=== PATIENT | female | born 1975 | race Caucasian/White ===

== ENCOUNTER 2016-08-08 23:35 | Emergency (ER) | payer OTHER ==
[~2016-08-08] VITALS: Ht 165.1 cm; Wt 74.8 kg
[2016-08-08 23:44] VITALS: BP 139/58
--- NOTE | 2016-08-09 00:13 | ED HEAD/FACIAL INJ COMPLAINT ---
History of Present Illness General Chief Complaint: Laceration Procedure Stated Complaint: "FOREHEAD LAC S/P FALL, -LOC" Source: patient, family Exam Limitations: no limitations Vital Signs & Intake/Output Vital Signs & Intake/Output Vital Signs Date Time Temp Pulse Resp B/P Pulse O2 O2 Flow FiO2 Ox Delivery Rate 08/08 2349 95 Room Air 08/08 2344 97.8 94 18 139/58 95 Room Air ED Intake and Output 08/09 0000 08/08 1200 Intake Total Output Total Balance Patient 165 lb Weight Allergies Coded Allergies: No Known Allergies (08/08/16) Reconcile Medications No Known Home Medications Triage Note: TRIAGE: PATIENT TO ER FROM HOME S/P TRIP AND FALL APPROX 45 MINUTES AGO, DENIES SYNCOPE/DIZZINESS PRIOR TO FALL. PATIENT NOTED W/ LAC TO R SIDE FOREHEAD, SLIGHT ACTIVE BLEEDING NOTED. PATIENT REPORTS LAST TETNAUS APPROX 5 YEARS AGO. -LOC, +HIT HEAD, -BLOODTHINNERS. Triage Nurses Notes Reviewed? yes Onset: Abrupt Severity: mild Location: frontal Method of Injury: fall Loss of Consciousness: no loss of consciousness : No Patient currently breastfeeds: No HPI: 40-year-old female comes into emergency room for further evaluation of fall. Patient reports that she tripped when she was going into the living room and hit her head on the corner of the table. She denies any loss of conscious. Denies any vomiting or headache or neck pain or chest pain or injury anywhere else on her body. She denies any headache currently. Patient has a laceration to the right side of her forehead which is why she came in. Patient admits to having a glass of wine but she is clinically sober here in the emergency room does not appear to be actively intoxicated. (KATHARINA MCGUIRE) Past History Travel History Traveled to [place] past 21 day No Medical History Any Pertinent Medical History? see below for history Neurological: NONE EENT: NONE Cardiovascular: NONE Respiratory: NONE Gastrointestinal: NONE Hepatic: NONE Renal: NONE Musculoskeletal: NONE Psychiatric: NONE Endocrine: NONE Blood Disorders: NONE Cancer(s): NONE DOVETAILER/Reproductive: NONE Surgical History Surgical History: non-contributory Psychosocial History What is your primary language Swedish Tobacco Use: Refused to answer Family History Hx Contributory? No (KATHARINA MCGUIRE) Review of Systems Review of Systems Constitutional: Reports: no symptoms. EENTM: Reports: no symptoms. Respiratory: Reports: no symptoms. Cardiovascular: Reports: no symptoms. GI: Reports: no symptoms. Genitourinary: Reports: no symptoms. Musculoskeletal: Reports: no symptoms. Skin: Reports: see HPI. Neurological/Psychological: Reports: see HPI. Hematologic/Endocrine: Reports: no symptoms. Immunologic/Allergic: Reports: no symptoms. All Other Systems: Reviewed and Negative (KATHARINA MCGUIRE) Physical Exam Physical Exam General Appearance: well developed/nourished, mild distress Head: 2 cm laceration right side forehead Eyes: Bilateral: normal appearance, PERRL, EOMI. Ears, Nose, Throat: normal pharynx, normal ENT inspection, hearing grossly normal Neck: normal inspection, supple, full range of motion, no midline tenderness Respiratory: normal breath sounds, no respiratory distress Cardiovascular: regular rate/rhythm Back: normal inspection Extremities: normal inspection, normal range of motion, no edema Psychiatric: awake, alert, oriented x 3 Cranial Nerves: normal hearing, normal speech, PERRL Coordination/Gait: normal gait Motor/Sensory: no motor/sensory deficits Skin: intact, normal color, warm/dry Lymphatic: no anterior cervical allyson (KATHARINA MCGUIRE) Progress Differential Diagnosis: corneal abrasion, c-spine injury, facial fracture, globe injury, ICH, orbit fracture, skull fracture Plan of Care: see below (KATHARINA MCGUIRE) Departure Departure Disposition: HOME OR SELF CARE Condition: Stable Clinical Impression Primary Impression: Facial laceration Secondary Impressions: Head injury Referrals: UNKNOWN (PCP/Family) Additional Instructions: Return in 7 days for suture removal. Return immediately if any vomiting, severe headache, neck pain, or any other concerns worsening symptoms. Patient should be observed overnight by family member. Please go over all results of today's visit with your primary care doctor. Contact your primary care doctor to let them know you were here in the emergency room. There may be nonspecific findings which may not be related to your visit today here in the emergency room but may require further evaluation and chronic monitoring by your primary care doctor. If you had a laceration today the chance of foreign body always remains. You should follow-up with your primary care doctor for recheck in 3-5 days for a wound check. If you had an x-ray done there is a chance that a fracture could have been missed on initial read and you should follow-up with your primary care doctor for repeat x-rays if symptoms persist. If your blood pressure was elevated here in the emergency room please have rechecked by her primary care doctor within the next 48 hours by your primary care doctor. If you were prescribed a narcotic here in the emergency room or any type of controlled substances you're not allowed to drive while taking this medication or operate any type of heavy machinery. Narcotics can make you feel lightheaded dizziness nausea and can cause constipation. You may need to crop picker a stool softener. Thank you for choosing [facility] emergency room. Please return to the emergency room immediately if you have any other concerns worsening of symptoms. Departure Forms: Customer Survey General Discharge Information Prescriptions: Current Visit Scripts No Known Home Medications Comments 08/09/2016 12:30:53 AM Patient does not appear to be intoxicated. She has a family member that's going to be with her all night. She has no symptoms of concussion. No loss of consciousness. No vomiting. Tetanus shot is up-to-date. Patient tolerated procedure well. Return if any other concerns. At this time I do not feel CT scan is necessary. I offered CT scan to patient and family members but they declined. Patient will be observed overnight and follow-up as needed. Patient was instructed to return if she has any complaints of headache vomiting neck pain or any other concerns. (KATHARINA MCGUIRE) PA/RETURN CHECKER Co-Sign Statement Statement: ED Attending supervision documentation- [] I saw and evaluated the patient. I have also reviewed all the pertinent lab results and diagnostic results. I agree with the findings and the plan of care as documented in the PA's/RETURN CHECKER's documentation. x] I have reviewed the ED Record and agree with the PA's/RETURN CHECKER's documentation. [] Additions or exceptions (if any) to the PAs/RETURN CHECKER's note and plan are summarized below: [] (BARBARA THOMAS,VÍCTOR Olson) Procedures Laceration/Wound Repair Progress: Betadine prep, 1% lidocaine with epi, 4 mL injected, irrigated with peroxide, 5.0 chromic gut subcutaneous stitch placed, 3 6. 0 nylon sutures placed superficially, sterile technique, bacitracin placed, patient tolerated procedure well, (KATHARINA MCGUIRE)
== END 2016-08-09 00:17 ==
LOC: ERH 23:35
DX: S01.81XA Laceration without foreign body of other part of head, initial encounter (principal); S09.90XA Unspecified injury of head, initial encounter; W18.09XA Striking against other object with subsequent fall, initial encounter; Y92.009 Unspecified place in unspecified non-institutional (private) residence as the place of occurrence of the external cause; Y93.9 Activity, unspecified